=== PATIENT | male | born 1965 | race Caucasian/White ===

== ENCOUNTER 2020-01-18 13:48 | Emergency (ER) | payer OTHER ==
[2020-01-18] MEDS ORDERED: BABY ASPIRIN 81 MG CHEW PO ONE (13:58)
--- NOTE | 2020-01-18 14:00 | ERPHSYRPT ---
- History of Present Illness Time Seen by Provider: 01/18/20 14:00 Historian: patient Exam Limitations: no limitations Physician History: Patient is a 55-year-old male with a history of LAD stent placed in October 2018 presents to our ED with complaints of substernal chest pain. Patient has not taken his Plavix in over a month. Chest pain started this morning at approximately 8 AM. Pain described as an ache that is well localized. No radiation. No associated nausea vomiting or diaphoresis. Symptoms are mild to moderate intensity. No specific worsening or improving factors. Patient's pain at this time is minimal according to patient. Patient voices no other complaints at this time. Timing/Duration: today Activities at Onset: none Quality: aching Location: substernal Chest Pain Radiation: no radiation Severity of Pain-Max: moderate Severity of Pain-Current: mild Modifying Factors: Improves With: nothing Associated Symptoms: denies symptoms, No nausea, No vomiting, No palpitations Prior Chest Pain/Cardiac Workup: cardiac cath, heart attack Nitro Today/Relief: no nitro taken today Aspirin Treatment Today: no aspirin today Allergies/Adverse Reactions: No Known Drug Allergies Allergy (Unverified 01/18/20 13:53) Home Medications: No Reportable Medications [No Reported Medications] 01/18/20 [History] - Review of Systems Constitutional: No Symptoms, No Fever, No Chills Eyes: No Symptoms Ears, Nose, & Throat: No Symptoms Respiratory: No Symptoms, No Cough, No Dyspnea Cardiac: Chest Pain, No Edema, No Syncope Abdominal/Gastrointestinal: No Symptoms, No Abdominal Pain, No Nausea, No Vomiting, No Diarrhea Genitourinary Symptoms: No Symptoms, No Dysuria Musculoskeletal: No Symptoms, No Back Pain, No Neck Pain Skin: No Symptoms, No Rash Neurological: No Symptoms, No Dizziness, No Focal Weakness, No Sensory Changes Psychological: No Symptoms Endocrine: No Symptoms Immunological/Allergic: No Symptoms All Other Systems: Reviewed and Negative - Nursing Vital Signs Nursing Vital Signs: Initial Vital Signs Pulse Rate 94 H 01/18/20 13:54 Respiratory Rate 18 01/18/20 13:54 Blood Pressure 163/96 01/18/20 13:54 O2 Sat by Pulse Oximetry 98 01/18/20 13:54 Pain Scale Pain Intensity 1 - Physical Exam General Appearance: no apparent distress, alert Eye Exam: PERRL/EOMI, eyes nml inspection Ears, Nose, Throat Exam: normal ENT inspection, moist mucous membranes Neck Exam: normal inspection, non-tender, supple, full range of motion Respiratory Exam: normal breath sounds, lungs clear, No respiratory distress Cardiovascular Exam: regular rate/rhythm, normal heart sounds Gastrointestinal/Abdomen Exam: soft, No tenderness, No mass Back Exam: normal inspection, No CVA tenderness, No vertebral tenderness Extremity Exam: normal inspection, normal range of motion Neurologic Exam: alert, oriented x 3, cooperative, normal mood/affect, sensation nml, No motor deficits Skin Exam: normal color, warm, dry SpO2 Interpretation: normal SpO2: 98 O2 Delivery: Room Air - Course Nursing assessment & vital signs reviewed: Yes EKG Interpreted by Me: RATE, Sinus Rhythm, NORMAL AXIS, NORMAL INTERVALS - Radiology Exams Chest X-ray Interpretation: Teleradiologist Report (No acute process.) Ordered Tests: Active Orders 24 hr Category Date Time Status Impersonator Character STAT Care 01/18/20 13:59 Active EKG-ER Only STAT Care 01/18/20 13:58 Active IV Insertion STAT Care 01/18/20 13:58 Active Pulse Oximetry (ED) STAT Care 01/18/20 13:58 Active CHEST 1 VIEW (PORTABLE) Stat Exams 01/18/20 13:59 Completed CBC W DIFF Stat Lab 01/18/20 14:00 Completed CK-Creatinine Phosphokinase Stat Lab 01/18/20 14:00 Completed CMP Stat Lab 01/18/20 14:00 Completed NT PRO BNP Stat Lab 01/18/20 14:00 Completed TROPONIN Q3H Lab 01/18/20 14:00 Completed TROPONIN Q3H Lab 01/18/20 17:00 Ordered TROPONIN Q3H Lab 01/18/20 20:00 Ordered TROPONIN Q3H Lab 01/18/20 23:00 Ordered TROPONIN Q3H Lab 01/19/20 02:00 Ordered Urine Triage Profile Stat Lab 01/18/20 15:45 Completed Medication Summary Discontinued Medications Generic Name Dose Route Start Last Admin Trade Name Freq PRN Reason Stop Dose Admin Aspirin 324 mg 01/18/20 13:58 01/18/20 14:23 Baby Aspirin 81 Mg Chew PO 01/18/20 13:59 324 mg STAT ONE Administration Aspirin Confirm 01/18/20 14:20 Baby Aspirin 81 Mg Chew Administered 01/18/20 14:21 Dose 324 mg .ROUTE .STK-MED ONE Lab/Rad Data: Laboratory Result Diagrams 01/18/20 14:00 01/18/20 14:00 Laboratory Results 01/18/20 01/18/20 01/18/20 Range/Units 15:45 14:00 14:00 WBC (4.0-10.5) K/mm3 RBC (4.1-5.6) M/mm3 Hgb (12.5-18.0) gm/dl Hct (42-50) % MCV (78-100) fl MCH (26-32) pg MCHC (32-36) g/dl RDW (11.5-14.0) % Plt Count (150-450) K/mm3 MPV (7.5-11.0) fl Gran % (36.0-66.0) % Eos # (Auto) (0-0.5) Absolute Lymphs (auto) (1.0-4.6) Absolute Monos (auto) (0.0-1.3) Lymphocytes % (24.0-44.0) % Monocytes % (0.0-12.0) % Eosinophils % (0.00-5.0) % Basophils % (0.0-0.4) % Absolute Granulocytes (1.4-6.9) Basophils # (0-0.4) Sodium 140 (137-145) mmol/L Potassium 4.1 (3.5-5.1) mmol/L Chloride 105 (98-107) mmol/L Carbon Dioxide 26 (22-30) mmol/L Anion Gap 12.2 (5-15) MEQ/L BUN 14 (9-20) mg/dL Creatinine 0.90 (0.66-1.25) mg/dL Estimated GFR > 60.0 ML/MIN Glucose 131 H (74-106) mg/dL Calcium 9.4 (8.4-10.2) mg/dL Total Bilirubin 0.60 (0.2-1.3) mg/dL AST 40 (17-59) U/L ALT 41 (0-50) U/L Alkaline Phosphatase 59 (38-126) U/L Creatine Kinase 142 (55-170) U/L Troponin I < 0.012 (0.000-0.034) ng/mL NT-Pro-B Natriuret Pep 35.7 (0-900) pg/mL Serum Total Protein 7.9 (6.3-8.2) g/dL Albumin 4.3 (3.5-5.0) g/dL Urine Opiates Level NEGATIVE (NEGATIVE) Ur Methadone NEGATIVE (NEGATIVE) Urine Barbiturates NEGATIVE (NEGATIVE) Ur Phencyclidine (PCP) NEGATIVE (NEGATIVE) Urine Amphetamine NEGATIVE (NEGATIVE) U Benzodiazepine Level NEGATIVE (NEGATIVE) Urine Cocaine NEGATIVE (NEGATIVE) Urine Marijuana (THC) NEGATIVE (NEGATIVE) 01/18/20 Range/Units 14:00 WBC 8.4 (4.0-10.5) K/mm3 RBC 4.59 (4.1-5.6) M/mm3 Hgb 14.9 (12.5-18.0) gm/dl Hct 43.3 (42-50) % MCV 94.3 (78-100) fl MCH 32.5 H (26-32) pg MCHC 34.4 (32-36) g/dl RDW 13.5 (11.5-14.0) % Plt Count 162 (150-450) K/mm3 MPV 9.6 (7.5-11.0) fl Gran % 66.8 H (36.0-66.0) % Eos # (Auto) 0.03 (0-0.5) Absolute Lymphs (auto) 1.74 (1.0-4.6) Absolute Monos (auto) 1.01 (0.0-1.3) Lymphocytes % 20.7 L (24.0-44.0) % Monocytes % 12.0 (0.0-12.0) % Eosinophils % 0.4 (0.00-5.0) % Basophils % 0.1 (0.0-0.4) % Absolute Granulocytes 5.63 (1.4-6.9) Basophils # 0.01 (0-0.4) Sodium (137-145) mmol/L Potassium (3.5-5.1) mmol/L Chloride (98-107) mmol/L Carbon Dioxide (22-30) mmol/L Anion Gap (5-15) MEQ/L BUN (9-20) mg/dL Creatinine (0.66-1.25) mg/dL Estimated GFR ML/MIN Glucose (74-106) mg/dL Calcium (8.4-10.2) mg/dL Total Bilirubin (0.2-1.3) mg/dL AST (17-59) U/L ALT (0-50) U/L Alkaline Phosphatase (38-126) U/L Creatine Kinase (55-170) U/L Troponin I (0.000-0.034) ng/mL NT-Pro-B Natriuret Pep (0-900) pg/mL Serum Total Protein (6.3-8.2) g/dL Albumin (3.5-5.0) g/dL Urine Opiates Level (NEGATIVE) Ur Methadone (NEGATIVE) Urine Barbiturates (NEGATIVE) Ur Phencyclidine (PCP) (NEGATIVE) Urine Amphetamine (NEGATIVE) U Benzodiazepine Level (NEGATIVE) Urine Cocaine (NEGATIVE) Urine Marijuana (THC) (NEGATIVE) - Progress Progress: improved Air Movement: fair Progress Note: 01/18/20 16:51 Patient reassessed. Patient denies chest pain. Work-up essentially negative. In light of patient's history and noncompliance with antiplatelet medication we advised admission for cardiac rule out. Patient declined. Risk and benefits discussed. Patient requests leave AMA. AMA form completed. Patient is of sound mind. Patient understands the risks of leaving AGAINST MEDICAL ADVICE. Patient understands that he risks delayed diagnosis, worsening of symptoms, increased risk morbidity, mortality, short and long-term disability including . Patient accepts his risks and is going to leave AMA. Blood Culture(s) Obtained: No Antibiotics given: No Counseled pt/family regarding: lab results, diagnosis, need for follow-up, rad results - Departure Departure Disposition: AMA, Extended Care Facility Clinical Impression: ACS (acute coronary syndrome), Non compliance w medication regimen Condition: Stable Critical Care Time: No Referrals: DOCTOR,NO FAMILY [Primary Care Provider] - ANDRE GUTIERERZ MD [ACTIVE STAFF] - IRVING GUTIERREZ MD [NON-STAFF PHY W/O PRIVILEGES] - Additional Instructions: Discharge/Care Plan Sami Cedeño was seen on 01/18/20 in the Emergency Room. The patient was counseled regarding Diagnosis,Lab results, Imaging studies, need for follow up and when to return to the Emergency Room. Prescriptions given: Discharge Note I have spoken with the patient and/or caregivers. I have explained the patient' s condition, diagnosis and treatment plan based on the information available to me at this time. I have answered the patient's and/or caregiver's questions and addressed any concerns. The patient and/or caregivers have as good understanding of the patient's diagnosis, condition and treatment plan as can be expected at this point. The vital signs have been stable. The patient's condition is stable and appropriate for discharge from the emergency department. The patient will pursue further outpatient evaluation with the primary care physician or other designated or consulting physician as outlined in the discharge instructions. The patient and/or caregivers are agreeable to this plan of care and follow-up instructions have been explained in detail. The patient and/or caregivers have received these instruction. The patient/and or caregivers are aware that any significant change in condition or worsening of symptoms should prompt an immediate return to this or the closest emergency department or call 911.
[2020-01-18] MEDS ORDERED: BABY ASPIRIN 81 MG CHEW ONE (14:20)
--- NOTE | 2020-01-18 14:27 | XRAY ---
Indication: Chest pain. Comparison: None Portable chest demonstrates normal heart and lungs. Bony thorax intact with mild degenerative changes.
[2020-01-18 14:31] LABS: Absolute Neutrophil Ct (ANC) 5.63 (1.4-6.9); BASOPHIL % 0.1 % (0.0-0.4); Basophil (Absolute #) 0.01 (0-0.4); Eosinophil % 0.4 % (0.00-5.0); Eosinophil (Absolute #) 0.03 (0-0.5); Hematocrit 43.3 % (42-50); Hemoglobin 14.9 gm/dl (12.5-18.0); Lymphocyte (Absolute #) 1.74 (1.0-4.6); Lymphocytes % 20.7 % (24.0-44.0); Mean Cell Volume 94.3 fl (78-100); Mean Corpuscular Hemoglobin 32.5 pg (26-32); Mean Corpuscular Hgb Concent. 34.4 g/dl (32-36); Mean Platelet Volume 9.6 fl (7.5-11.0); Monocyte (Absolute #) 1.01 (0.0-1.3); Neutrophil % 66.8 % (36.0-66.0); Platelet Count 162 K/mm3 (150-450); Red Blood Count 4.59 M/mm3 (4.1-5.6); Red Cell Distribution Width 13.5 % (11.5-14.0); White Blood Count 8.4 K/mm3 (4.0-10.5)
[2020-01-18 14:52] LABS: ALBUMIN 4.3 g/dL (3.5-5.0); ALKALINE PHOSPHATASE 59 U/L (38-126); ANION GAP 12.2 MEQ/L (5-15); BLOOD UREA NITROGEN 14 mg/dL (9-20); CHLORIDE 105 mmol/L (98-107); CK-Creatinine Phosphokinase 142 U/L (55-170); Calcium 9.4 mg/dL (8.4-10.2); Carbon Dioxide 26 mmol/L (22-30); Glucose 131 mg/dL (74-106); NT PRO BNP 35.7 pg/mL (0-900); Potassium 4.1 mmol/L (3.5-5.1); SGOT/AST 40 U/L (17-59); SGPT/ALT 41 U/L (0-50); SODIUM 140 mmol/L (137-145); Total Protein 7.9 g/dL (6.3-8.2)
[2020-01-18 16:19] VITALS: BP 134/94; PULSE 70; O2SAT 98
[2020-01-18 16:27] LABS: Amphetamine,Urine NEGATIVE (NEGATIVE); Barbiturate,Urine NEGATIVE (NEGATIVE); Benzodiazepine,Urine NEGATIVE (NEGATIVE); Cocaine,Urine NEGATIVE (NEGATIVE); Methadone,Urine NEGATIVE (NEGATIVE); Opiate,Urine NEGATIVE (NEGATIVE); PCP,Urine NEGATIVE (NEGATIVE); THC,Urine NEGATIVE (NEGATIVE)
== END 2020-01-18 17:07 | disposition left against medical advice (07) ==
LOC: ED 13:48
DX: I24.9 Acute ischemic heart disease, unspecified (principal); Z91.14 Patient's other noncompliance with medication regimen
CPT/HCPCS: 36000; 36415; 71045; 80053; 80307; 82550; 83880; 84484; 85025; 93005; 93041; 94760; 99284; A9270-GY

== ENCOUNTER 2020-12-17 10:31 | Emergency (ER) | payer OTHER ==
[2020-12-17] MEDS ORDERED: XYLOCAINE 1% HCL 20 ML MDV IJ ONE (10:32)
--- NOTE | 2020-12-17 10:33 | ERPHSYRPT ---
- History of Present Illness Time Seen by Provider: 12/17/20 10:33 Source: patient Exam Limitations: no limitations Physician History: This is a 55-year-old white male who has an old laceration to his skin just below the right knee anteriorly. Patient does a lot of work where he is on his knees. The last several days he has noticed increased redness and warmth to the site. There is been no drainage from the healing laceration site. Patient is concerned about infection. Patient has not had any nausea vomiting or fevers. Patient has a history of hypertension and gastroesophageal reflux disease. Method of Injury: unknown Occurred: other (3 weeks) Quality: burning Severity of Pain-Max: mild Severity of Pain-Current: mild Lower Extremities Pain: knee: right Modifying Factors: Improves With: nothing Associated Symptoms: none Allergies/Adverse Reactions: No Known Drug Allergies Allergy (Verified 12/17/20 10:44) Home Medications: Aspirin EC 81 mg [Ecotrin 81 mg] 81 mg PO DAILY 12/17/20 [History] Atorvastatin Calcium [Lipitor] 80 mg PO DAILY 12/17/20 [History] Omeprazole 20 mg PO DAILY 12/17/20 [History] lisinopriL [Zestril] 2.5 mg PO DAILY 12/17/20 [History] Hx Tetanus, Diphtheria Vaccination/Date Given: Yes Hx Influenza Vaccination/Date Given: Yes Travel Risk - International Travel Have you traveled outside of the country in past 3 weeks: No - Coronavirus Screening Are you exhibiting any of the following symptoms?: No Close contact with a COVID-19 positive Pt in past 14-21 Days: No - Vaccine Status Have you recieved a Covid-19 vaccination: No - Review of Systems Constitutional: No Symptoms Eyes: No Symptoms Ears, Nose, & Throat: No Symptoms Respiratory: No Symptoms Cardiac: No Symptoms Abdominal/Gastrointestinal: No Symptoms Genitourinary Symptoms: No Symptoms Musculoskeletal: No Symptoms Skin: Cellulitis (Right knee and upper lower leg on the right side) Neurological: No Symptoms Psychological: No Symptoms Endocrine: No Symptoms Hematologic/Lymphatic: No Symptoms Immunological/Allergic: No Symptoms - Past Medical History Pertinent Past Medical History: Yes Neurological History: No Pertinent History ENT History: No Pertinent History Cardiac History: Coronary Artery Disease, Myocardial Infarction ([place]) Respiratory History: No Pertinent History Endocrine Medical History: No Pertinent History Musculoskeletal History: No Pertinent History GI Medical History: GERD History: No Pertinent History Psycho-Social History: No Pertinent History Male Reproductive Disorders: No Pertinent History - Past Surgical History Past Surgical History: Yes Cardiac: Cardiac Stent - Social History Smoking Status: Never smoker Exposure to second hand smoke: No Drug Use: none Patient Lives Alone: No (girlfriend and son) - Nursing Vital Signs Nursing Vital Signs: Initial Vital Signs Temperature 99.0 F 12/17/20 10:36 Pulse Rate 102 H 12/17/20 10:36 Blood Pressure 168/95 12/17/20 10:36 O2 Sat by Pulse Oximetry 98 12/17/20 10:36 Pain Scale Pain Intensity 3 - Physical Exam General Appearance: no apparent distress, alert, anxiety Eyes, Ears, Nose, Throat Exam: normal ENT inspection, moist mucous membranes Neck Exam: normal inspection, non-tender, supple, full range of motion Cardiovascular/Respiratory Exam: chest non-tender, no respiratory distress Gastrointestinal/Abdominal Exam: non-tender Back Exam: normal inspection, normal range of motion, No CVA tenderness, No vertebral tenderness Hips Exam: bilateral: non-tender, normal inspection, normal range of motion, no evidence of injury Legs Exam: right leg: normal range of motion, soft tissue tenderness, other (Upper portion of the leg below the knee has a approximately 1 cm healing laceration/eschar with cellulitis present anteriorly), left leg: non-tender, normal inspection, no evidence of injury Knees Exam: right knee: normal range of motion, soft tissue tenderness, other (Cellulitis anteriorly. There is warmth present.), left knee: non-tender, normal inspection, no evidence of injury Ankle Exam: bilateral ankle: non-tender, normal inspection, normal range of motion, no evidence of injury Foot Exam: bilateral foot: non-tender, normal inspection, normal range of motion, no evidence of injury Neuro/Tendon Exam: normal sensation, normal motor functions, normal tendon functions Mental Status Exam: alert, oriented x 3, cooperative Skin Exam: other (Cellulitis right anterior knee and proximal lower leg anteriorly. There is eschar/healing laceration site without drainage or expressible pus. There is mild tenderness present) SpO2 Interpretation: normal O2 Delivery: Room Air - Course Nursing assessment & vital signs reviewed: Yes Ordered Tests: Medication Summary Discontinued Medications Generic Name Dose Route Start Last Admin Trade Name Freq PRN Reason Stop Dose Admin Ceftriaxone Sodium 1,000 mg 12/17/20 10:47 Rocephin 1000 Mg Inj IM 12/17/20 10:48 STAT ONE Levofloxacin 500 mg 12/17/20 10:47 Levofloxacin 500 Mg Tablet PO 12/17/20 10:48 STAT ONE - Progress Progress: unchanged Counseled pt/family regarding: diagnosis, need for follow-up - Departure Departure Disposition: Home Clinical Impression: Cellulitis of right leg Condition: Stable Critical Care Time: No Referrals: DOCTOR,NO FAMILY [Primary Care Provider] - Additional Instructions: Keep site clean daily with soap and water. Make sure that you keep the skin of your bilateral lower extremities moist with moisturizing lotion that is unscented. Use twice a day. Take your antibiotics as prescribed. Return to the emergency department if your symptoms worsen. Follow-up with your primary care physician for a reevaluation if symptoms persist but are not worse. Prescriptions: Levofloxacin [Levaquin 500 MG Tablet] 500 mg PO DAILY #7 tablet
[2020-12-17 10:44] VITALS: BP 168/95; PULSE 102; O2SAT 98
[2020-12-17] MEDS ORDERED: Levofloxacin 500 MG Tablet PO ONE (10:47)
[2020-12-17] MEDS ORDERED: Rocephin 1000 MG INJ IM ONE (10:47)
[2020-12-17] MEDS ORDERED: Levofloxacin 500 MG Tablet ONE (11:00)
[2020-12-17] MEDS ORDERED: Rocephin 1000 MG INJ ONE (11:01)
== END 2020-12-17 11:25 | disposition home or self-care (01) ==
LOC: ED 10:31
DX: L03.115 Cellulitis of right lower limb (principal)
CPT/HCPCS: 96372; 99283; J0696; A9270-GY

== ENCOUNTER 2022-05-17 08:52 | Day surgery (SDC) | payer OTHER ==
--- NOTE | 2022-05-16 09:07 | HP ---
DATE OF SURGERY: 05/17/2022 HISTORY OF PRESENT ILLNESS: The patient presents with complaints of a ventral hernia. Currently it looks like a small symptomatic ventral hernia on exam. The patient desires intervention at this time. PAST MEDICAL HISTORY: Myocardial infarction, reflux, hypertension, hyperlipidemia. PAST SURGICAL HISTORY: Cardiac stent. ALLERGIES: NKDA. MEDICATIONS: Lisinopril, sildenafil, Zetia. FAMILY HISTORY: None reported. SOCIAL HISTORY: Occasional alcohol, denies tobacco. REVIEW OF SYSTEMS: CONSTITUTIONAL: Denies fever or chills. CHEST: Denies shortness of breath. CVS: Denies chest pain. ABDOMEN: Reports ventral hernia pain. PHYSICAL EXAMINATION: GENERAL: No acute distress. CHEST: Nonlabored. No shortness of breath. CVS: Regular rate and rhythm. ABDOMEN: Soft, ventral hernia tender. IMPRESSION: Symptomatic ventral hernia. PLAN: Ventral hernia repair with possible mesh with Dr. Lorne Lock. As dictated by Rachel Saucedo NP.
[~2022-05-17 08:52] MED LIST: Sensorcaine 0.25% 10 ML ONE
[2022-05-17] MEDS ORDERED: Lactated Ringers 1,000 ML IV ONE ×2 (09:27→13:10)
[2022-05-17] MEDS ORDERED: CEFAZOLIN 2 GM-D5W BAG** 2 GM/50 ML ML IV ONE (09:27)
[2022-05-17] MEDS ORDERED: CEFAZOLIN 2 GM-D5W BAG** 2 GM/50 ML ML IV SCH ×2 (09:30)
[2022-05-17] MEDS ORDERED: Lactated Ringers 1,000 ML IV SCH (09:30)
[2022-05-17] MEDS ORDERED: KEFZOL 1 GM ONE (10:22)
[2022-05-17] MEDS ORDERED: SUBLIMAZE 250 MCG/5 ML ONE (11:55)
[2022-05-17] MEDS ORDERED: Versed 2 MG/2 ML Injection ONE (11:55)
[2022-05-17] MEDS ORDERED: DIPRIVAN 200 MG/20 ML IV ONE (11:55)
[2022-05-17] MEDS ORDERED: Zemuron 100 MG/10 ML ONE (11:55)
[2022-05-17] MEDS ORDERED: TORAdol 30 mg Injection ONE (12:41)
[2022-05-17] MEDS ORDERED: BRIDION 200MG/2ML IV ONE (12:41)
[2022-05-17] MEDS ORDERED: Zofran 4 MG/2 ML VIAL ONE (12:41)
[2022-05-17] MEDS ORDERED: ENALAPRILAT 2.5 MG INJECTION IV ONE (13:06)
[2022-05-17 14:09] VITALS: O2SAT 97
[2022-05-17 14:15] VITALS: BP 134/79; PULSE 64
--- NOTE | 2022-05-17 14:51 | OP ---
SURGERY DATE/TIME: 05/17/2022 1200 PREOPERATIVE DIAGNOSIS: Ventral hernia. POSTOPERATIVE DIAGNOSIS: Umbilical hernia. PROCEDURE: Primary umbilical hernia repair. SURGEON: Lorne Lock M.D. HUMAN SERVICES SUPERVISOR: Rachel Saucedo NP. ANESTHESIA: General. COMPLICATIONS: None. CONDITION: Stable. INDICATION: The patient has a hernia right above the umbilicus. DESCRIPTION OF PROCEDURE: Taken to surgery. General anesthetic. Routine prep and drape. Time out performed. 0.25% Marcaine. Curvilinear incision. Dissection carried down. It was umbilical. The defect was 1.5 x 1 cm. It was closed with three - 0 Prolene that were placed and tied down. Figure-of-8 Vicryl was then placed in between this. Skin closed with 4-0 Vicryl and Steri-Strips. The patient tolerated the procedure satisfactorily.
== END 2022-05-17 14:10 | disposition home or self-care (01) ==
LOC: SDC 08:52
PROVIDERS: ATTEND Surgery
DX: K42.9 Umbilical hernia without obstruction or gangrene (principal); K43.9 Ventral hernia without obstruction or gangrene
CPT/HCPCS: 64488; 76937; 76942; J0690; J1885; J2250; J2405; J2704; J3010; L0625

== ENCOUNTER 2024-03-13 09:55 | Emergency (ER) | payer OTHER ==
[2024-03-13 10:11] VITALS: TEMP 97
--- NOTE | 2024-03-13 10:29 | ERPHSYRPT ---
- History of Present Illness Time Seen by Provider: 03/13/24 10:15 Source: patient, family Exam Limitations: no limitations Patient Subjective Stated Complaint: pt here for abnormal labs, pt has not other cos, has been seen recently for treated for URI Triage Nursing Assessment: pt alert, walked in, resp easy, skin w.d.p. moves all ext well ,no edema noted Physician History: This is a 59-year-old white male patient of Dr. Bryan who is asymptomatic and states he feels pretty good. But was told to come to the emergency department because lab work that was performed 48 hours ago showed a BUN/creatinine of 37/3.19 and a GFR of 21.4. When compared to BUN/creatinine dated 01/14/2023 (13/0.88 and GFR greater than 60) this is significantly different. In the last couple of weeks the patient's medication regiment changed to include short-term Tessalon Perles and prednisone for treatment of bronchitis. Otherwise, there is been no change to the patient's medication list. Patient does have a history of hypertension and gastroesophageal reflux disease. The patient denies chest pain. The patient denies shortness of breath. The patient denies abdominal pain. He had no nausea vomiting or diarrhea symptoms. Timing/Duration: today Activites at Onset: none Quality: other (Asymptomatic) Onset Location: other (Asymptomatic) Pain Radiation: other (Asymptomatic) Severity of Pain-Max: none Severity of Pain-Current: none Modifying Factors: Improves With: nothing Associated Symptoms: denies symptoms Prior abdominal problems: none Sexual intercourse history: non-contributory Allergies/Adverse Reactions: No Known Drug Allergies Allergy (Verified 03/13/24 10:01) Home Medications: lisinopriL [Zestril] 20 mg PO DAILY 12/17/20 [History] Loratadine 10 mg PO DAILY 04/25/22 [History] Aspirin [Children's Aspirin] 81 mg PO DAILY 11/02/22 [History] Benzonatate 100 mg PO TID 03/13/24 [History] Ezetimibe/Rosuvastatin Calcium [Rosuvastatin-Ezetimibe 10-10Mg] 1 each PO DAILY 03/13/24 [History] Lisinopril/Hydrochlorothiazide [Lisinopril-Hctz 20-12.5 mg Tab] 1 each PO DAILY 03/13/24 [History] Metoprolol Tartrate 50 mg [Lopressor 50 MG] 50 mg PO DAILY 03/13/24 [History] Hx Tetanus, Diphtheria Vaccination/Date Given: Yes Hx Influenza Vaccination/Date Given: Yes Hx Pneumococcal Vaccination/Date Given: No Immunizations Up to Date: Yes Travel Risk - International Travel Have you traveled outside of the country in past 3 weeks: No - Emerging Infectious Disease Are you exhibiting symptoms associated with any current EIDs: No - Past Medical History Pertinent Past Medical History: Yes Neurological History: No Pertinent History ENT History: No Pertinent History Cardiac History: Hypertension, Myocardial Infarction ([place]) Respiratory History: No Pertinent History Endocrine Medical History: No Pertinent History Musculoskeletal History: No Pertinent History GI Medical History: GERD, Hernia History: No Pertinent History Psycho-Social History: No Pertinent History Male Reproductive Disorders: No Pertinent History - Past Surgical History Past Surgical History: Yes Neuro Surgical History: No Pertinent History Cardiac: Cardiac Catheterization, Cardiac Stent Respiratory: No Pertinent History Gastrointestinal: Hernia Repair Genitourinary: No Pertinent History Musculoskeletal: No Pertinent History Male Surgical History: No Pertinent History Other Surgical History: cardiac stent 2020, tendon repair R hand - Social History Smoking Status: Former smoker Exposure to second hand smoke: No Drug Use: none Patient Lives Alone: No (girlfriend and son) - Social Determinants of Health Will the patient participate in the screening: Declined to provide - Review of Systems Constitutional: No Symptoms Eyes: No Symptoms Ears, Nose, & Throat: No Symptoms Respiratory: No Symptoms Cardiac: No Symptoms Abdominal/Gastrointestinal: No Symptoms Genitourinary Symptoms: No Symptoms Musculoskeletal: No Symptoms Skin: No Symptoms Neurological: No Symptoms Psychological: No Symptoms Endocrine: No Symptoms Hematologic/Lymphatic: No Symptoms Immunological/Allergic: No Symptoms All Other Systems: Reviewed and Negative - Nursing Vital Signs Nursing Vital Signs: Initial Vital Signs Temperature 97.0 F 03/13/24 10:10 Pulse Rate 74 03/13/24 10:10 Respiratory Rate 20 03/13/24 10:10 Blood Pressure 95/51 03/13/24 10:10 O2 Sat by Pulse Oximetry 98 03/13/24 10:10 Pain Scale Pain Intensity 0 - Physical Exam General Appearance: no apparent distress, alert, obese Eye Exam: PERRL/EOMI, eyes nml inspection Ears, Nose, Throat Exam: normal ENT inspection, moist mucous membranes Neck Exam: normal inspection, non-tender, supple, full range of motion Respiratory Exam: normal breath sounds, lungs clear, airway intact, No chest tenderness, No respiratory distress Cardiovascular Exam: regular rate/rhythm, normal heart sounds, normal peripheral pulses Gastrointestinal/Abdomen Exam: soft, normal bowel sounds, No tenderness Rectal Exam: not done Back Exam: normal inspection, normal range of motion, No CVA tenderness, No vertebral tenderness Extremity Exam: normal inspection, normal range of motion, pelvis stable Neurologic Exam: alert, oriented x 3, cooperative, java spring developer II-XII nml as tested, normal mood/affect, nml cerebellar function, nml station & gait, sensation nml Skin Exam: normal color, warm, dry Lymphatic Exam: No adenopathy SpO2 Interpretation: normal SpO2: 98 O2 Delivery: Room Air - Course Nursing assessment & vital signs reviewed: Yes Ordered Tests: Active Orders 24 hr Category Date Time Status IV Insertion STAT Care 03/13/24 10:22 Active CBC W DIFF Stat Lab 03/13/24 10:21 Completed CMP Stat Lab 03/13/24 10:21 Completed MAGNESIUM Stat Lab 03/13/24 10:21 Completed UA W/RFX UR CULTURE Stat Lab 03/13/24 11:58 Completed Medication Summary Discontinued Medications Generic Name Dose Route Start Last Admin Trade Name Freq PRN Reason Stop Dose Admin Sodium Chloride 1,000 mls @ 999 mls/hr 03/13/24 10:22 03/13/24 11:48 Sodium Chloride 0.9% 1000 Ml IV 03/13/24 11:22 Infused .Q1H1M STA Infusion Sodium Chloride Confirm 03/13/24 10:32 Sodium Chloride 0.9% 1000 Ml Administered 03/13/24 10:33 Dose 1,000 mls @ ud .ROUTE .STK-MED ONE Magnesium Oxide 400 mg 03/13/24 11:59 03/13/24 12:12 Magnesium Oxide 400 Mg Tablet PO 03/13/24 12:00 400 mg STAT ONE Administration Magnesium Oxide Confirm 03/13/24 12:11 Magnesium Oxide 400 Mg Tablet Administered 03/13/24 12:12 Dose 400 mg .ROUTE .STK-MED ONE Lab/Rad Data: Laboratory Result Diagrams 03/13/24 10:21 03/13/24 10:21 Laboratory Results 03/13/24 03/13/24 03/13/24 Range/Units 11:58 10:21 10:21 WBC 7.5 (4.23-9.07) x10^3/uL RBC 3.67 L (4.63-6.08) x10^6/uL Hgb 12.0 L (13.7-17.5) g/dL Hct 33.5 L (40.1-51.0) % MCV 91.3 (79.0-92.2) fL MCH 32.7 H (25.7-32.2) pg MCHC 35.8 (32.3-36.5) g/dL RDW 13.2 (11.6-14.4) % Plt Count 212 (163-337) x10^3/uL MPV 8.7 L (9.4-12.4) fL Gran % 60.4 (34.0-67.9) % Immature Gran % (Auto) 0.5 H (0.001-0.429) % Nucleat RBC Rel Count 0.0 (0.00-0.2) % Eos # (Auto) 0.03 L (0.04-0.54) x10^3/uL Immature Gran # (Auto) 0.04 H (0.001-0.031) x10^3u/L Absolute Lymphs (auto) 1.95 (1.32-3.57) x10^3/uL Absolute Monos (auto) 0.94 H (0.30-0.82) x10^3/uL Absolute Nucleated RBC 0.00 (0.00-0.012) x10^3u/L Lymphocytes % 25.9 (21.8-53.1) % Monocytes % 12.5 H (5.3-12.2) % Eosinophils % 0.4 L (0.8-7.0) % Basophils % 0.3 (0.2-1.2) % Absolute Granulocytes 4.54 (1.78-5.38) x10^3/uL Basophils # 0.02 (0.01-0.08) x10^3/uL Sodium 136 (135-145) mmol/L Potassium 4.0 (3.5-5.1) mmol/L Chloride 101 (98-107) mmol/L Carbon Dioxide 21 L (22-30) mmol/L Anion Gap 17.5 H (5-15) MEQ/L BUN 27 H (9-20) mg/dL Creatinine 1.45 H (0.66-1.25) mg/dL Estimated GFR 55.2 ML/MIN Glucose 109 H (74-106) mg/dL Calcium 9.4 (8.4-10.2) mg/dL Magnesium 1.4 L (1.6-2.3) mg/dL Total Bilirubin 0.60 (0.2-1.3) mg/dL AST 146 H (17-59) U/L ALT 174 H (0-50) U/L Alkaline Phosphatase 52 (38-126) U/L Serum Total Protein 7.4 (6.3-8.2) g/dL Albumin 4.0 (3.5-5.0) g/dL Urine Color Yellow (Yellow) Urine Appearance Clear (Clear) Urine pH 5.5 (4.6-8.0) Ur Specific [place] 1.010 (1.005-1.030) Urine Protein Negative (Negative) Urine Glucose (UA) Negative (Negative) mg/dL Urine Ketones Negative (Negative) Urine Blood Negative (Negative) Urine Nitrite Negative (Negative) Urine Bilirubin Negative (Negative) Urine Urobilinogen 0.2 (0.2) mg/dL Ur Leukocyte Esterase Negative (Negative) U Hyaline Cast (Auto) NONE SEEN (0-2) /LPF Urine Microscopic RBC 0-2 (0-5) /HPF Urine Microscopic WBC 0-2 (0-5) /HPF Ur Epithelial Cells None Seen (None Seen) /HPF Urine Bacteria None Seen (None Seen) /HPF Urine Culture Reflexed NO (NO) - Progress Progress: unchanged Progress Note: 03/13/24 10:29 My medical decision making and the assignment of moderate complexity to this patient's medical issue today is based on review of the patient's past medical history, review the patient's medication list, review of patient drug allergy list, history present illness and physical findings on examination. The workup in this patient includes placement of intravenous line, infusion of normal saline solution, CBC, CMP, magnesium level and urinalysis. Differential diagnosis includes but is not limited to electrolyte abnormality, new onset chronic renal disease, acute on chronic renal disease, dehydration 03/13/24 10:30 03/13/24 12:53 Interpreted the patient's laboratory data results. The patient has no documented history of any renal disease. The lab work resulted dated 03/11/2024 might have been an error in the lab. We did repeat this BUN/creatinine and GFR today. Although it is not completely normal it is significantly improved just by rechecking the labs. We made an appointment for this patient return back to his primary care provider after we hydrated him. They will make a referral to nephrology if they feel it is appropriate. 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 Avoid exposure to heat environment as best as possible. Keep your appointment with your primary care provider that was scheduled for you.
[2024-03-13] MEDS ORDERED: Sodium Chloride 0.9% 1000 ML 1,000 ML ONE (10:32)
[2024-03-13] MEDS: Sodium Chloride 0.9% 1000 ML 1,000 ML IV STA (10:35)
[2024-03-13 11:05] LABS: Absolute Neutrophil Ct (ANC) 4.54 x10^3/uL (1.78-5.38); BASOPHIL % 0.3 % (0.2-1.2); Basophil (Absolute #) 0.02 x10^3/uL (0.01-0.08); Eosinophil % 0.4 % (0.8-7.0); Eosinophil (Absolute #) 0.03 x10^3/uL (0.04-0.54); Hematocrit 33.5 % (40.1-51.0); IMMATURE GRAN # 0.04 x10^3u/L (0.001-0.031); IMMATURE GRAN % 0.5 % (0.001-0.429); Lymphocyte (Absolute #) 1.95 x10^3/uL (1.32-3.57); Lymphocytes % 25.9 % (21.8-53.1); Mean Cell Volume 91.3 fL (79.0-92.2); Mean Corpuscular Hemoglobin 32.7 pg (25.7-32.2); Mean Corpuscular Hgb Concent. 35.8 g/dL (32.3-36.5); Mean Platelet Volume 8.7 fL (9.4-12.4); Monocyte (Absolute #) 0.94 x10^3/uL (0.30-0.82); Monocytes % 12.5 % (5.3-12.2); Neutrophil % 60.4 % (34.0-67.9); Platelet Count 212 x10^3/uL (163-337); Red Blood Count 3.67 x10^6/uL (4.63-6.08); Red Cell Distribution Width 13.2 % (11.6-14.4); White Blood Count 7.5 x10^3/uL (4.23-9.07)
[2024-03-13 11:18] LABS: ANION GAP 17.5 MEQ/L (5-15); BILIRUBIN,TOTAL 0.6 mg/dL (0.2-1.3); Calcium 9.4 mg/dL (8.4-10.2); Creatinine 1 1.45 mg/dL (0.66-1.25); EST GLOMERULAR FILTRATION RATE 55.2 ML/MIN; MAGNESIUM 1.4 mg/dL (1.6-2.3); Total Protein 7.4 g/dL (6.3-8.2)
[2024-03-13 11:35] VITALS: BP 117/61; PULSE 70; RESP 18
[2024-03-13] MEDS ORDERED: MAG-OX 400 ONE (12:11)
[2024-03-13] MEDS: MAG-OX 400 PO ONE (12:12)
[2024-03-13 12:16] LABS: Appearance Clear (Clear); Bacteria None Seen /HPF (None Seen); Bilirubin Negative (Negative); Blood Negative (Negative); Epithelial Cells None Seen /HPF (None Seen); Glucose, Urine Negative (Negative); Hyaline Casts NONE SEEN /LPF (0-2); Ketones Negative (Negative); Leukocyte Esterase Negative (Negative); Nitrite Negative (Negative); Ph 5.5 (4.6-8.0); Protein,Urine Dip Negative (Negative); RBC 0-2 /HPF (0-5); Urobilinogen 0.2 mg/dL (0.2); WBC 0-2 /HPF (0-5)
[2024-03-13 12:32] LABS: ADD URINE CULTURE? NO (NO)
[2024-03-13 12:56] VITALS: O2SAT 98
== END 2024-03-13 13:11 | disposition home or self-care (01) ==
LOC: ED 09:55
DX: N28.9 Disorder of kidney and ureter, unspecified (principal); I10 Essential (primary) hypertension; K21.9 Gastro-esophageal reflux disease without esophagitis; Z79.899 Other long term (current) drug therapy
CPT/HCPCS: 36000; 36415; 80053; 81001; 83735; 85025; 96360; 99284; A9270-GY